=== PATIENT | male | born 1945 | race Caucasian/White ===

== ENCOUNTER 2019-10-25 04:59 | Day surgery (SDC) | payer OTHER ==
[2019-10-23 15:40] VITALS: BMI 26.3
[2019-10-25 13:05] VITALS: TEMP 97.3
[2019-10-25 13:43] VITALS: BP 128/57; PULSE 78
== END 2019-10-25 13:50 | disposition home or self-care (01) ==
LOC: JASU-ENDO 04:59
PROVIDERS: ATTEND Internal Medicine Gastroenterology
PROC: 0DJD8ZZ Inspection of Lower Intestinal Tract, Via Natural or Artificial Opening Endoscopic (ICD-10-PCS; principal; 2019-10-25 11:00)
DX: Z12.11 Encounter for screening for malignant neoplasm of colon (principal); K57.30 Diverticulosis of large intestine without perforation or abscess without bleeding; K64.8 Other hemorrhoids; Z86.010 Personal history of colon polyps